=== PATIENT | male | born 1975 | race Caucasian/White ===

== ENCOUNTER 2017-10-08 16:04 | Emergency (ER) | payer BC, OTHER ==
--- NOTE | 2017-10-08 16:53 | RAD ---
TWO VIEWS OF CHEST 10/08/17 COMPARISON: None. HISTORY: Cough. FINDINGS: Lungs are clear. Heart and mediastinal contours are within normal limits. There is mild elevation of the right hemidiaphragm. IMPRESSION: No acute findings. POS: [facility]
[2017-10-08] MEDS ORDERED: Amlodipine 5 MG TAB ONE (18:59)
== END 2017-10-08 19:11 | disposition home or self-care (01) ==
LOC: ERS 16:04
DX: B34.9 Viral infection, unspecified (principal); E11.9 Type 2 diabetes mellitus without complications; E78.5 Hyperlipidemia, unspecified; I10 Essential (primary) hypertension; Z79.899 Other long term (current) drug therapy
CPT/HCPCS: 71020; 93005